=== PATIENT | male | born 1960 | race Caucasian/White ===

== ENCOUNTER 2019-04-10 07:05 | Outpatient (CLI) | payer BC ==
--- NOTE | 2019-04-10 13:18 | MRI ---
RIGHT KNEE MRI WITHOUT IV CONTRAST: HISTORY: Right knee pain. TECHNIQUE: Multiplanar, multisequence MRI examination of the right knee is performed. FINDINGS: There is evidence for a flap tear involving the posterior horn and posterior body of the medial menis cus, with a small displaced meniscal flap. The lateral meniscus is unremarkable. Minimal T2 hyperin tense signal in the lateral patellar facet cartilage, possibly some mild patellar cartilage softening . Anterior and posterior cruciate ligaments and collateral ligament complexes appear intact. Indigo ceps and patellar tendons appear unremarkable. Physiologic joint fluid. No significant abnormal mar row signal or acute osteochondral defect. Minimal nonspecific anterior, medial, and lateral subcutan eous fat stranding. IMPRESSION: 1. 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 2. No evidence for other significant acute internal derangement. POS: [facility]
== END 2019-04-10 07:06 | disposition home or self-care (01) ==
LOC: SCSMRI 07:05
PROVIDERS: ATTEND Orthopaedic Surgery
DX: M25.561 Pain in right knee (principal); S83.241A Other tear of medial meniscus, current injury, right knee, initial encounter; M22.41 Chondromalacia patellae, right knee

== ENCOUNTER 2019-05-10 09:21 | Day surgery (SDC) | payer BC ==
[2019-04-26 11:27] VITALS: BMI 34.8
[2019-05-10] MEDS ORDERED: Bupivacaine/Epinephrine 0.25% 30 ML VIAL ONE (11:11)
[2019-05-10] MEDS ORDERED: Lidocaine 1% (PF) 30 ML VIAL ONE (11:13)
[2019-05-10] MEDS ORDERED: Fentanyl 100 MCG/2 ML VIAL ONE (11:24)
--- NOTE | 2019-05-10 13:17 | OP ---
DATE OF PROCEDURE: 05/10/2019 PREOPERATIVE DIAGNOSIS: Right flap tear, medial meniscus. POSTOPERATIVE DIAGNOSES: Right flap tear, medial meniscus with grade 1 medial femoral condyle changes. TEXTILE MACHINE MECHANIC: None. ANESTHESIOLOGIST: Katie Rodriguez MD ANESTHESIA: The patient received a LMA with 30 mL of Marcaine preprocedure and 30 mL lidocaine with epinephrine postprocedure. ANTIBIOTICS: Ancef 2 g. IMPLANTS: None. COMPLICATIONS: None. HISTORY OF PRESENT ILLNESS: Mr. Rodríguez is a 58-year-old male presented with right knee pain, who presents on 04/25, when he two months ago popping, mechanical start-up pain, long periods of weightbearing increased. The patient has a MRI evidence of just some chondromalacial changes with interval flap tear of the medial meniscus. I discussed with the patient risks of surgery include pain, scar, bleeding, infection, damage to vital structures, decreased range of motion and strength, nonunion, malunion, potential risk of fracture, arthritis long-term, and blood clot. The patient understood the risks and the benefits of the procedure and elected to proceed. DESCRIPTION OF PROCEDURE: After time-out was performed designating the patient's right lower extremity as the operative site based on site, consent, and marking. After time-out, the patient's right lower extremity was prepped and draped in sterile fashion. The tourniquet was brought up and left up for a 15 minutes. Anterolateral and anteromedial portals were placed, excised fat pad. ACL and PCL were intact. There was some chondromalacia, but no full-thickness defects. No loose bodies in either gutter. Lateral meniscus looked good throughout. The medial joint space had some grade 1 changes of the femur and tibia, but no full-thickness defects were noted. There was a flap tear of the medial meniscus, which with biters and danny, shaved to stable remnant. Took pictures throughout the procedure and ensured with my completion of my procedure, my diagnostic scope and my meniscectomy. I then washed, closed with 3-0 nylon. I injected Marcaine before the procedure started, which was washed out through the case and lidocaine postprocedure. The patient will be discharged to follow up me in 10 to 14 days for suture removal. Job ID: [id number]
== END 2019-05-10 15:20 | disposition home or self-care (01) ==
LOC: SDC 09:21
PROVIDERS: ATTEND Orthopaedic Surgery
PROC: 0SBC4ZZ Excision of Right Knee Joint, Percutaneous Endoscopic Approach (ICD-10-PCS; principal; 2019-05-10)
DX: S83.241A Other tear of medial meniscus, current injury, right knee, initial encounter (principal); E11.9 Type 2 diabetes mellitus without complications; E78.00 Pure hypercholesterolemia, unspecified; Z79.84 Long term (current) use of oral hypoglycemic drugs; Z79.899 Other long term (current) drug therapy
CPT/HCPCS: 36416; J0690; J2001; J3010